=== PATIENT | male | born 1955 | race African-American/Black ===

== ENCOUNTER 2019-02-25 06:14 | Observation (INO) ==
[2019-02-25] MEDS ORDERED: methylPREDNISolone SOD SUC 125 MG/2 ML VIAL IV STA (06:40)
[2019-02-25] MEDS ORDERED: ALBUTEROL 2.5 MG/3 ML NEB RESP TX SCH (07:00)
[2019-02-25 07:35] LABS: Basophils # 0.1 10*3/uL (0.0-0.2); Basophils % 0.7 % (0.0-0.8); Hematocrit 44.7 VOL% (42.0-52.0); Hemoglobin 14.2 GM/DL (14.0-18.0); Immature Granulocytes % 0.2 %; Immature Granulocytes Absolute 0.02 #; Lymphocytes # 1.9 10*3/uL (1.4-4.0); Lymphocytes % 21.6 % (21.2-54.2); Mean Corpuscular HGB Conc 31.8 GM/DL (32-36); Mean Corpuscular Volume 70.5 FL (87-102); Mean Platelet Volume 10.4 FL (9.6-12.0); Monocytes % 7.3 % (1.7-12.7); Neutrophils % 47.2 % (38.7-73.9); Platelet Count 185 T/CUMM (130-400); Red Blood Count 6.34 MC/CUMM (3.8-5.5); Red Cell Distribution Width 15.4 % (9.3-17.3); White Blood Count 8.7 T/CUMM (4-12)
[2019-02-25 07:55] LABS: Albumin 3.9 G/DL (3.4-5.0); Bilirubin,Total 0.7 MG/DL (0.2-1.0); Calcium 9.7 MG/DL (8.5-10.1); Eosinophils 15 % (0-10); Hypochromasia 1+; Lymphocytes 23 % (20-55); Osmolality,Calculated 284.7 MOS/KG (273-304); Platelet Estimate Adequate; Segmented Neutrophils 55 % (50-85); Total Cells Counted 100; Total Protein 6.9 G/DL (6.4-8.3)
[2019-02-25] MEDS ORDERED: CEFUROXIME IV SCH (08:30)
[2019-02-25] MEDS ORDERED: cefTRIAXone 1,000 MG VIAL ONE (10:38)
[2019-02-25] MEDS ORDERED: SODIUM CHLORIDE 0.9% 100 ML IV ONE (10:38)
[2019-02-25] MEDS: cefTRIAXone 1,000 MG in SYRINGE 1 EACH IV SCH (10:43)
[2019-02-25] MEDS: amLODIPine 10 MG TABLET PO SCH (10:43)
[2019-02-25] MEDS ORDERED: AZITHROMYCIN 500 MG VIAL IV ONE (11:06)
[2019-02-25] MEDS: AZITHROMYCIN INJ 500 MG in SODIUM CHLORIDE 0.9% 250 ML IV SCH (11:10)
[2019-02-25] MEDS: VALSARTAN 160 MG TABLET PO SCH (11:30)
[2019-02-25] MEDS: MONTELUKAST 10 MG TABLET PO SCH (11:30)
[2019-02-25] MEDS: HEPARIN 5,000 UNIT/1 ML VIAL SUBCUT SCH ×2 (11:34→18:21)
[2019-02-25] MEDS: ALBUTEROL/IPRATROPIUM 3 ML NEB RESP TX SCH ×3 (13:50→23:53)
[2019-02-25] MEDS ORDERED: INFLUENZA VIRUS VACCINE 0.5 ML SYRINGE IM ONE (16:10)
[2019-02-25] MEDS: methylPREDNISolone SOD SUC 40 MG/1 ML VIAL IV SCH ×2 (17:04→23:00)
[2019-02-25] MEDS: BUDESONIDE/FORMOTEROL 80-4.5 INHALER 6.9 GM INH SCH ×2 (17:13→20:40)
[2019-02-25] MEDS: MESALAMINE 800 MG TABLET PO SCH (17:13)
[2019-02-25 20:38] LABS: Apearance,Urine CLEAR (Clear); Bilirubin,Urine Negative (Negative); Blood, Urine Negative (Negative); Glucose,Urine (UA) Negative (Negative); Ketones,Urine 5 mg/dL (Negative); Nitrite,Urine Negative (Negative); Protein,Urine Negative; RBC,Urine <1 /HPF (0-4); Squamous Epithelial Cell,Urine Occasional /HPF (0-10); Urine Color Yellow (Yellow); Urine Specific Gravity 1.015 (1.001-1.035); Urine Urobilinogen < 2.0 EU/DL (0.2-1.0); WBC,Urine 1 /HPF (0-6)
[2019-02-25] MEDS: ROSUVASTATIN 20 MG TABLET PO SCH (20:39)
[2019-02-26] MEDS: HEPARIN 5,000 UNIT/1 ML VIAL SUBCUT SCH ×3 (03:59→18:35)
[2019-02-26 05:24] LABS: Basophils % 0.1 % (0.0-0.8); Hematocrit 41.3 VOL% (42.0-52.0); Hemoglobin 13.2 GM/DL (14.0-18.0); Immature Granulocytes % 0.4 %; Immature Granulocytes Absolute 0.05 #; Lymphocytes # 1.3 10*3/uL (1.4-4.0); Lymphocytes % 10.9 % (21.2-54.2); Mean Corpuscular Volume 70.2 FL (87-102); Mean Platelet Volume 11.4 FL (9.6-12.0); Monocytes % 2.8 % (1.7-12.7); Neutrophils % 85.8 % (38.7-73.9); Platelet Count 192 T/CUMM (130-400); Red Blood Count 5.88 MC/CUMM (3.8-5.5); Red Cell Distribution Width 14.3 % (9.3-17.3); White Blood Count 11.6 T/CUMM (4-12)
[2019-02-26 05:52] LABS: Risk Ratio 2.42
[2019-02-26 06:07] LABS: Albumin 3.6 G/DL (3.4-5.0); Bilirubin,Total 0.4 MG/DL (0.2-1.0); Osmolality,Calculated 288.1 MOS/KG (273-304); Total Protein 6.9 G/DL (6.4-8.3)
[2019-02-26] MEDS: ALBUTEROL/IPRATROPIUM 3 ML NEB RESP TX SCH ×3 (07:23→19:57)
[2019-02-26] MEDS ORDERED: PANTOPRAZOLE 40 MG TABLET PO SCH (09:00)
[2019-02-26] MEDS: VALSARTAN 160 MG TABLET PO SCH (09:21)
[2019-02-26] MEDS: MESALAMINE 800 MG TABLET PO SCH (09:21)
[2019-02-26] MEDS: methylPREDNISolone SOD SUC 40 MG/1 ML VIAL IV SCH ×3 (09:21→23:36)
[2019-02-26] MEDS: MONTELUKAST 10 MG TABLET PO SCH (09:22)
[2019-02-26] MEDS: amLODIPine 10 MG TABLET PO SCH (09:22)
[2019-02-26] MEDS: PANTOPRAZOLE 40 MG TABLET PO SCH (09:22)
[2019-02-26] MEDS: BUDESONIDE/FORMOTEROL 80-4.5 INHALER 6.9 GM INH SCH ×2 (09:24→21:36)
[2019-02-26] MEDS: AZITHROMYCIN INJ 500 MG in SODIUM CHLORIDE 0.9% 250 ML IV SCH (09:25)
[2019-02-26] MEDS: cefTRIAXone 1,000 MG in SYRINGE 1 EACH IV SCH (09:35)
[2019-02-26] MEDS: ROSUVASTATIN 20 MG TABLET PO SCH (21:35)
[2019-02-27] MEDS: ALBUTEROL/IPRATROPIUM 3 ML NEB RESP TX SCH ×2 (00:25→07:12)
[2019-02-27] MEDS: HEPARIN 5,000 UNIT/1 ML VIAL SUBCUT SCH (02:30)
[2019-02-27 05:17] LABS: Basophils % 0.1 % (0.0-0.8); Hematocrit 40.9 VOL% (42.0-52.0); Immature Granulocytes % 0.5 %; Immature Granulocytes Absolute 0.08 #; Lymphocytes # 1.1 10*3/uL (1.4-4.0); Lymphocytes % 6.4 % (21.2-54.2); Mean Corpuscular HGB Conc 31.8 GM/DL (32-36); Mean Platelet Volume 12.3 FL (9.6-12.0); Monocytes % 4.1 % (1.7-12.7); Neutrophils % 88.9 % (38.7-73.9); Platelet Count 205 T/CUMM (130-400); Red Blood Count 5.84 MC/CUMM (3.8-5.5); Red Cell Distribution Width 14.6 % (9.3-17.3); White Blood Count 17.7 T/CUMM (4-12)
[2019-02-27 05:47] LABS: Alanine Aminotransferase 31 U/L (16-61); Albumin 3.8 G/DL (3.4-5.0); Alkaline Phosphatase 80 U/L (45-117); Aspartate Amino Transferase 44 U/L (0-37); Bilirubin,Total < 0.39 MG/DL (0.2-1.0); Blood Urea Nitrogen 18 MG/DL (7-18); Calcium 10.2 MG/DL (8.5-10.1); Estimated Glom Filtration Rate 109 ML/MIN; Glucose 182 MG/DL (74-106); Osmolality,Calculated 298.4 MOS/KG (273-304); Total Protein 6.9 G/DL (6.4-8.3)
[2019-02-27] MEDS: methylPREDNISolone SOD SUC 40 MG/1 ML VIAL IV SCH (06:49)
[2019-02-27 07:39] VITALS: BP 128/80
[2019-02-27] MEDS: MESALAMINE 800 MG TABLET PO SCH (09:41)
[2019-02-27] MEDS: VALSARTAN 160 MG TABLET PO SCH (09:45)
[2019-02-27] MEDS: MONTELUKAST 10 MG TABLET PO SCH (09:45)
[2019-02-27] MEDS: BUDESONIDE/FORMOTEROL 80-4.5 INHALER 6.9 GM INH SCH (09:46)
[2019-02-27] MEDS: PANTOPRAZOLE 40 MG TABLET PO SCH (09:46)
[2019-02-27] MEDS: amLODIPine 10 MG TABLET PO SCH (09:47)
== END 2019-02-27 10:49 | disposition home or self-care (01) ==
LOC: N.EDINP 06:14 → N.ED 06:14 → N.4E 12:37
PROVIDERS: ADMIT Internal Medicine; ATTEND Internal Medicine